=== PATIENT | female | born 1980 | race Caucasian/White ===

== ENCOUNTER 2021-04-10 20:42 | Emergency (ER) | payer OTHER ==
[~2021-04-10 20:42] MED LIST: BENTYL 10MG CAP10 MG PO; COLACE100 MG PO; LODINE CAP 300300 MG PO; PHENERGAN 12.12.5 M1 PO; ZOFRAN ODT 4 MG4 MG PO; ZOFRAN4 MG PO
[2021-04-10 21:31] LABS: HEMOGLOBIN 13.8 gm/dl (12.3-15.3); RED BLOOD COUNT 4.56 M/UL (4.00-5.10)
[2021-04-10 21:56] LABS: BUN/CREATININE RATIO 17 (0-10)
[2021-04-10] MEDS ORDERED: BENTYL 20MG TAB20 MG PO (23:18)
[2021-04-10] MEDS ORDERED: ZOFRAN ODT 4 MG4 MG PO (23:18)
== END 2021-04-10 23:23 | disposition home or self-care (01) ==
LOC: ER1 20:42
PROVIDERS: Physician Assistant
DX: R10.84 Generalized abdominal pain (principal); R10.817 Generalized abdominal tenderness
CPT/HCPCS: 80053; 81001; 82272; 83605; 85025; 87086; 99284; J2270; J2405; Q9967